=== PATIENT | male | born 2000 | race Caucasian/White ===

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

== ENCOUNTER 2018-10-21 20:18 | Emergency (ER) | payer OTHER ==
[~2018-10-21] VITALS: Ht 175.3 cm; Wt 74.0 kg
[2018-10-21 20:45] VITALS: Ht 175.3 cm; Wt 74.0 kg
[2018-10-22 01:38] VITALS: BP 127/69
== END 2018-10-22 01:38 | disposition home or self-care (01) ==
LOC: ED 20:18
DX: B34.9 Viral infection, unspecified (principal)
CPT/HCPCS: J0780; J1885

== ENCOUNTER 2020-03-21 15:42 | Emergency (ER) | payer BC, SELFPAY ==
[~2020-03-21] VITALS: Ht 175.3 cm; Wt 77.1 kg
[2020-03-21 15:47] VITALS: BP 113/62; Ht 175.3 cm; Wt 77.1 kg
== END 2020-03-21 16:57 | disposition home or self-care (01) ==
LOC: ED 15:42
DX: J02.9 Acute pharyngitis, unspecified (principal); R09.89 Other specified symptoms and signs involving the circulatory and respiratory systems; M79.10 Myalgia, unspecified site; Z20.828 Contact with and (suspected) exposure to other viral communicable diseases
CPT/HCPCS: U0003

== ENCOUNTER 2020-06-02 18:06 | Emergency (ER) | payer BC ==
[~2020-06-02] VITALS: Ht 175.3 cm; Wt 78.5 kg
[2020-06-02 18:15] VITALS: Ht 175.3 cm; Wt 78.5 kg
[2020-06-02] MEDS ORDERED: PREDNISONE20 MG PO (19:03)
[2020-06-02] MEDS ORDERED: CLARITIN10 MG PO (19:03)
[2020-06-02 19:21] VITALS: BP 121/74
== END 2020-06-02 19:21 | disposition home or self-care (01) ==
LOC: ED 18:06
DX: K12.2 Cellulitis and abscess of mouth (principal); Z20.822 Contact with and (suspected) exposure to COVID-19
CPT/HCPCS: J1200; J7512; U0003